=== PATIENT | female | born 1975 ===

== ENCOUNTER → 2025-02-08 | Outpatient (REF) | payer BC ==
[2025-02-09 13:44] LABS: IRON (FE) 29 UG/DL (50-170); PERCENT SATURATION 7.9 % (13.2-45.0)
[2025-02-09 13:47] LABS: VITAMIN B12 LEVEL 469 PG/ML (211-911)
== END ==
LOC: M LAB REF 12:51
PROVIDERS: ATTEND Internal Medicine
DX: D64.9 Anemia, unspecified (principal)